=== PATIENT | female | born 1985 | race Caucasian/White ===

== ENCOUNTER 2017-07-21 18:40 | Emergency (ER) | payer SELFPAY, OTHER ==
[2017-07-21 19:15] LABS: BILIRUBIN,URINE NEGATIVE (NEG); CLARITY,URINE CLEAR; COLOR,URINE YELLOW; GLUCOSE,URINE NEGATIVE (NEG); NITRITE,URINE NEGATIVE (NEG); PROTEIN,URINE NEGATIVE (NEG-TRACE); UROBILINOGEN,URINE 0.2 mg/dL (0.2 mg/dL)
[2017-07-21 19:26] LABS: BACTERIA,URINE FEW /HPF (0-FEW); RBC,URINE 0 /HPF (0-2); SQUAMOUS EPITHELIAL CELL,UR MANY /LPF
[2017-07-21] MEDS: PROCHLORPERAZINE 10 MG/2 ML VIAL. IV (19:31)
[2017-07-21] MEDS: KETOROLAC 30 MG/ML INJ. IV (19:31)
[2017-07-21] MEDS: diphenhydrAMINE 50 MG/ML VIAL IVP (19:32)
[2017-07-24 14:17] LABS: CHLAMYDIA PROBE Negative (Negative); GC PROBE Negative (Negative)
== END 2017-07-21 20:30 | disposition home or self-care (01) ==
LOC: ER 18:40
DX: N76.0 Acute vaginitis (principal); B96.89 Other specified bacterial agents as the cause of diseases classified elsewhere; R51 Headache; K58.9 Irritable bowel syndrome, unspecified; G43.909 Migraine, unspecified, not intractable, without status migrainosus; F12.10 Cannabis abuse, uncomplicated; Z87.442 Personal history of urinary calculi; Z98.51 Tubal ligation status; Z88.5 Allergy status to narcotic agent; Z88.2 Allergy status to sulfonamides
CPT/HCPCS: 81001; 87086; 87491; 87591; 96374; 96375; 99284-25; J0780; J1200; J1885; Q0111

== ENCOUNTER 2018-01-29 18:17 | Emergency (ER) | payer SELFPAY ==
[~2018-01-29] VITALS: Ht 154.9 cm; Wt 51.3 kg
[~2018-01-29 18:17] MED LIST: METR500T PO
[2018-01-29 19:44] VITALS: BP 119/74
[2018-01-29 20:13] LABS: BILIRUBIN,URINE NEGATIVE (NEG); CLARITY,URINE CLOUDY; COLOR,URINE YELLOW; NITRITE,URINE POSITIVE (NEG); PROTEIN,URINE 30 mg/dL (NEG-TRACE)
--- NOTE | 2018-01-29 20:19 | PHYS DOC ---
Past Medical History Past Medical History: IBS, Kidney Stone, Migraines, Other Additional Past Medical Histor: kidney blockage Past Surgical History: , Tonsillectomy, Tubal ligation, Other Additional Past Surgical Histo: nephrostomy, adenoids, tubes in ears, uretal stent in place. Alcohol Use: Occasionally Drug Use: Marijuana Adult General Chief Complaint Chief Complaint: MULTIPLE COMPLAINTS HPI HPI 32-year-old female presents for evaluation of "bugs crawling on my skin". She also complains of dysuria and flank pain. Upon my arrival into the room, patient is sitting cross-legged on the floor and emptying out all of her bags, when I ask her what she is doing she states "I am organizing my bags". Patient was asked by the RN prior to my coming into the room to change into a gown, patient refused stating "I can't get changed into my boyfriend comes down to the room to take my close off". Denies drug use, states I am a mother I don't use drugs". She is also concerned that she has lice, her children have head lice recently. She is shaking her head frantically trying to "get the lice out". Review of Systems Review of Systems Constitutional: Denies fever or chills [] GI: Denies abdominal pain, nausea, vomiting, bloody stools or diarrhea [] : Denies dysuria or hematuria [] Musculoskeletal: Denies back pain or joint pain [] Neurologic: Denies headache, focal weakness or sensory changes [] Endocrine: Denies polyuria or polydipsia [] All other systems were reviewed and found to be within normal limits, except as documented in this note. Current Medications Current Medications Current Medications Medications (Trade) Dose Ordered Sig/Jean Paul Start Time Stop Time Status Last Admin Dose Admin Ketorolac Tromethamine (Toradol Im) 30 mg 1X ONCE 01/29/18 20:30 01/29/18 20:31 DC Allergies Allergies Allergies Coded Allergies Type Severity Reaction Last Updated Verified Sulfa (Sulfonamide Antibiotics) Allergy Unknown 05/03/14 No codeine Allergy Unknown 05/03/14 No Physical Exam Physical Exam Constitutional: Well developed, well nourished, no acute distress, non-toxic appearance,. [] Cardiovascular:Heart rate regular rhythm, no murmur [] Lungs & Thorax: Bilateral breath sounds clear to auscultation [] Abdomen: Bowel sounds normal, soft, tender to left side and no point tenderness , tender on lateral aspect of thorax, not in abdominal quadrant, no masses, no pulsatile masses. [] Skin: Warm, dry, no erythema, no rash. [] Back: No tenderness, no CVA tenderness. [] Extremities: No tenderness, no cyanosis, no clubbing, ROM intact, no edema. [] Neurologic: Alert and oriented X 3, normal motor function, normal sensory function, no focal deficits noted. [] Psychologic: She appears intoxicated, she is unable to sit still, she is talking fast Current Patient Data Vital Signs Vital Signs Date Time Temp Pulse Resp B/P (MAP) Pulse Ox O2 Delivery O2 Flow Rate FiO2 01/29/18 19:44 97.4 107 22 119/74 (89) 97 Room Air 97.4 Lab Values Laboratory Tests Test 01/29/18 19:45 01/29/18 20:06 Urine Collection Type Void Urine Color Yellow Urine Clarity Cloudy Urine pH 7.0 Urine Specific [place] 1.020 Urine Protein 30 mg/dL (NEG-TRACE) Urine Glucose (UA) Negative mg/dL (NEG) Urine Ketones (Stick) Negative mg/dL (NEG) Urine Blood Large (NEG) Urine Nitrite Positive (NEG) Urine Bilirubin Negative (NEG) Urine Urobilinogen Dipstick 1.0 mg/dL (0.2 mg/dL) Urine Leukocyte Esterase Small (NEG) Urine RBC 1-2 /HPF (0-2) Urine WBC >40 /HPF (0-4) Urine Squamous Epithelial Cells Many /LPF Urine Bacteria Many /HPF (0-FEW) Urine Mucus Slight /LPF Urine Opiates Screen Neg (NEG) Urine Methadone Screen Neg (NEG) Urine Barbiturates Neg (NEG) Urine Phencyclidine Screen Neg (NEG) Urine Amphetamine/Methamphetamine Pos (NEG) Urine Benzodiazepines Screen Neg (NEG) Urine Cocaine Screen Neg (NEG) Urine Cannabinoids Screen Pos (NEG) Urine Ethyl Alcohol Neg (NEG) POC Urine HCG, Qualitative Hcg negative (Negative) EKG EKG [] Radiology/Procedures Radiology/Procedures [] Course & Med Decision Making Course & Med Decision Making Vital signs are stable, patient is acting erratically, irritable, I discussed UA results, explained that she had urinary tract infection and we will treat with antibiotics. She is still convinced that she has bugs crawling all over her, I recommend she get a steroid cream [id number] to use for the pruritus. I did explain to her again that I do not see any evidence of bug infestation on her skin, she continues to insist that there is. I have recommended that she follow up with primary care regarding this. She is stable for discharge home. Dragon Disclaimer Dragon Disclaimer This electronic medical record was generated, in whole or in part, using a voice recognition dictation system. Departure Departure Impression: Primary Impression: UTI (urinary tract infection) Additional Impressions: Generalized pruritus Substance abuse Disposition: HOME, SELF-CARE Condition: STABLE Referrals: NO PCP (PCP) Patient Instructions: Pruritus, Urinary Tract Infection Scripts Cephalexin (KEFLEX) 500 Mg Capsule 1 CAP PO TID, #21 CAP 0 Refills Prov: JENI SEPULVEDA APRN 01/29/18 Problem Qualifiers JENI SEPULVEDA APRN Jan 29, 2018 20:19
[2018-01-29 20:23] LABS: BARBITURATES NEG (NEG); BENZODIAZEPINES NEG (NEG); CANNABINOIDS POS (NEG); COCAINE NEG (NEG); METHADONE NEG (NEG); OPIATES NEG (NEG); PHENCYCLIDINE NEG (NEG)
[2018-01-29 20:28] LABS: AMPHETAMINE/METHAMPHETAMINE POS (NEG)
[2018-01-29] MEDS ORDERED: KETOROLAC 60 MG/2 ML INJ. IM ONE (20:30)
[2018-01-29 20:44] LABS: BACTERIA,URINE MANY /HPF (0-FEW); SQUAMOUS EPITHELIAL CELL,UR MANY /LPF; WBC,URINE >40 /HPF (0-4)
[2018-01-29] MEDS ORDERED: CEPH-264 PO (20:59)
== END 2018-01-29 21:11 | disposition home or self-care (01) ==
LOC: ER 18:17
DX: N39.0 Urinary tract infection, site not specified (principal); L29.9 Pruritus, unspecified; F12.10 Cannabis abuse, uncomplicated; Z90.89 Acquired absence of other organs; Z88.2 Allergy status to sulfonamides; Z88.5 Allergy status to narcotic agent
CPT/HCPCS: 80307; 81001; 81025; 96372; 99284; J1885; 87086; G0479

== ENCOUNTER 2019-01-29 02:50 | Emergency (ER) | payer SELFPAY ==
[~2019-01-29] VITALS: Ht 160 cm; Wt 53.5 kg
[~2019-01-29 02:50] MED LIST changes: +CEPH-264 PO
[2019-01-29] MEDS ORDERED: KETOROLAC 30 MG/ML VIAL. IM ONE (03:30)
[2019-01-29] MEDS ORDERED: NEOMY/BACITR/POLYMYXIN OINT PACKET. TP ONE (03:30)
[2019-01-29] MEDS ORDERED: HYDR-3164 PO (03:42)
--- NOTE | 2019-01-29 03:42 | PHYS DOC ---
Past Medical History Additional Past Medical Histor: kidney blockage Past Surgical History: , Tubal ligation Additional Past Surgical Histo: nephrostomy, adenoids, tubes in ears, ureteral stent Smoking: Cigarettes Alcohol Use: None Drug Use: Methamphetamine Adult General Chief Complaint Chief Complaint: ANKLE PROBLEM HPI HPI 33-year-old female presents with report of right foot injury with abrasions to l ateral aspect of foot and ankle which occurred approximately 30 minutes to arrival. Patient reports a cinderblock landed on it. Patient reports last tetanus greater than 5 years ago. Denies due to history of tubal ligation. Reports wound is throbbing. Review of Systems Review of Systems Constitutional: Denies fever or chills Eyes: Denies redness or eye pain HENT: Denies nasal congestion or sore throat Respiratory: Denies cough or shortness of breath Cardiovascular: Denies chest pain or palpitations GI: Denies abdominal pain, nausea, or vomiting : Denies dysuria or hematuria Musculoskeletal: Reports right foot and ankle pain Integument: Reports abrasions to lateral aspect of right ankle and right lateral foot. Neurologic: Denies headache, focal weakness or sensory changes Complete systems were reviewed and found to be within normal limits, except as documented in this note. Current Medications Current Medications Current Medications Medications (Trade) Dose Ordered Sig/Jean Paul Start Time Stop Time Status Last Admin Dose Admin Acetaminophen/ Hydrocodone Bitart (Lortab 5/325) 1 tab 1X ONCE 01/29/19 04:00 01/29/19 04:01 Diphtheria/ Tetanus/Acell Pertussis (Boostrix) 0.5 ml ONCE ONCE 01/29/19 04:00 01/29/19 04:01 Ketorolac Tromethamine (Toradol 30mg Vial) 30 mg 1X ONCE 01/29/19 03:30 01/29/19 03:31 DC 01/29/19 03:32 30 MG Neomycin/ Polymyxin/ Bacitracin (Triple Antibiotic Ointment) 1 pkt 1X ONCE 01/29/19 03:30 01/29/19 03:31 DC 01/29/19 03:32 1 PKT Allergies Allergies Allergies Coded Allergies Type Severity Reaction Last Updated Verified Sulfa (Sulfonamide Antibiotics) Allergy Intermediate 01/29/19 No codeine Allergy Intermediate 01/29/19 No Physical Exam Physical Exam Constitutional: Well developed, well nourished, appears uncomfortable, non-toxic appearance HENT: Normocephalic, atraumatic, oropharynx moist Eyes: Conjunctiva normal, no discharge Neck: Normal range of motion, supple Cardiovascular: Right capillary refill less than 2 seconds, right PT and DP +2 pulses Lungs & Thorax: No respiratory distress Skin: Warm, dry, 1 cm right lateral ankle abrasion, right distal lateral foot superficial avulsion- no active bleeding Extremities: Right fifth metatarsal tenderness on palpation and range of motion, right lateral malleoli or pain with palpation Neurologic: Alert and oriented X 3, no focal deficits noted Psychologic: Affect anxious, judgement normal EKG EKG [] Radiology/Procedures Radiology/Procedures PROCEDURE: FOOT RIGHT 3V & ANKLE 3V Right foot x-rays 3 views HISTORY: Right foot pain, trauma. FINDINGS: No fracture, dislocation or arthritic change. The soft tissues are unremarkable. IMPRESSION: No acute osseous injury of the foot. Right ankle x-rays 3 views HISTORY: Right ankle pain. FINDINGS: No fracture or dislocation. No talus osteochondral lesion. Soft tissues are unremarkable. IMPRESSION: No acute osseous injury of the ankle. Electronically signed by: Fabricio Obrien MD (01/29/2019 3:44 AM) [facility] Course & Med Decision Making Course & Med Decision Making Pertinent Imaging studies reviewed. (See chart for details) Patient presents with report of blunt trauma to right foot with subsequent abrasions to lateral ankle and lateral foot. Tetanus updated. Wounds cleaned and dressed. X-ray obtained without signs of fracture or dislocation. Kaushal wrap applied. Crutches provided. Pain addressed. Patient stable for discharge with outpatient follow-up with PCP. Discussed findings and plan with patient and family, who acknowledge understanding and agreement. Dragon Disclaimer Dragon Disclaimer This electronic medical record was generated, in whole or in part, using a voice recognition dictation system. Splinting Splinting : Location: right ankle and foot Pre-Made Type: Kaushal bandage Pre-Proc Neuro Vasc Exam: normal Post-Proc Neuro Vasc Exam: normal, unchanged from pre-exam Departure Departure Impression: Primary Impression: Foot contusion Additional Impression: Abrasion Disposition: 01 HOME, SELF-CARE Condition: STABLE Referrals: NO PCP (PCP) Patient Instructions: Abrasion, [id number], Crutch Use, [id number], Foot Contusion, [id number] Scripts Hydrocodone/Apap 5-325 (NORCO 5-325 TABLET) 1 Each Tablet 0.5-1 TAB PO PRN Q6HRS PRN for PAIN, #10 TAB 0 Refills Prov: SUNNI NESBITT DO 01/29/19 Problem Qualifiers Primary Impression: Foot contusion Encounter type: initial encounter Laterality: right Qualified Codes: S90.31XA - Contusion of right foot, initial encounter SUNNI NESBITT DO Jan 29, 2019 03:42
--- NOTE | 2019-01-29 03:47 | RAD ---
Right foot x-rays 3 views HISTORY: Right foot pain, trauma. FINDINGS: No fracture, dislocation or arthritic change. The soft tissues are unremarkable. IMPRESSION: No acute osseous injury of the foot. Right ankle x-rays 3 views HISTORY: Right ankle pain. FINDINGS: No fracture or dislocation. No talus osteochondral lesion. Soft tissues are unremarkable. IMPRESSION: No acute osseous injury of the ankle. Electronically signed by: Fabricio Obrien MD (01/29/2019 3:44 AM) [facility]
[2019-01-29] MEDS ORDERED: HYDROcodone/APAP 5/325MG 1 TAB TABLET PO ONE (04:00)
[2019-01-29] MEDS ORDERED: DIPHTH,PERTUSS(ACELL),TET TOX 0.5 ML DISP.SYRIN. VAX IM ONE (04:00)
== END 2019-01-29 04:18 | disposition home or self-care (01) ==
LOC: ER 02:50
DX: S90.31XA Contusion of right foot, initial encounter (principal); S90.511A Abrasion, right ankle, initial encounter; Z98.890 Other specified postprocedural states; F17.210 Nicotine dependence, cigarettes, uncomplicated; Z98.51 Tubal ligation status; Z88.2 Allergy status to sulfonamides; Z88.5 Allergy status to narcotic agent; Z96.22 Myringotomy tube(s) status; W22.8XXA Striking against or struck by other objects, initial encounter; Y93.89 Activity, other specified; Y92.89 Other specified places as the place of occurrence of the external cause; Y99.8 Other external cause status
CPT/HCPCS: 73610; 73630; 90471; 90715; 96372; 99284; J1885

== ENCOUNTER → 2019-05-11 | Emergency (ER) | payer SELFPAY ==
[~2019-05-11] VITALS: Ht 152.4 cm; Wt 53.5 kg
[~2019-05-11] MED LIST changes: +DOXY100C2 PO; +DOXYCYCLINE HYCLATE 100 MG TABLET PO ONE; +HYDR-3164 PO; +ONDA4TAB7 PO; +ONDANSETRON ODT 4 MG TAB.RAPDIS. PO ONE
[2019-05-11 01:00] VITALS: BP 119/74
--- NOTE | 2019-05-11 01:44 | PHYS DOC ---
Past Medical History Past Medical History: No Pertinent History Additional Past Medical Histor: kidney blockage Past Surgical History: , Tubal ligation Additional Past Surgical Histo: nephrostomy, adenoids, tubes in ears, ureteral stent Alcohol Use: None Drug Use: Methamphetamine Adult General Chief Complaint Chief Complaint: ABSCESS HPI HPI 34-year-old female presents to the emergency department with complaints of abscess. Patient was seen at with incision and drainage with a loop placed, she did not return for follow-up, she stopped her antibiotics, and she subsequently discontinued the loop. She presents today with complaints of pain in the abscess area. There is nonfluctuant on examination, indurated. She states she still has some drainage at times. Patient denies any fever, nausea, vomiting at this time. She states she was on clindamycin however was intolerant to the medication given nausea and vomiting. She states they used ketamine for sedation at is requesting sedation if any procedure needs to be performed Review of Systems Review of Systems Constitutional: Denies fever or chills [] HENT: Denies nasal congestion or sore throat [] Respiratory: Denies cough or shortness of breath [] Cardiovascular: No additional information not addressed in HPI [] GI: nausea/vomiting with antibiotics : Denies dysuria or hematuria [] Musculoskeletal: Denies back pain or joint pain [] Integument: wrist pain Neurologic: Denies headache, focal weakness or sensory changes [] All other systems were reviewed and found to be within normal limits, except as documented in this note. Current Medications Current Medications Current Medications Medications (Trade) Dose Ordered Sig/Jean Paul Start Time Stop Time Status Last Admin Dose Admin Doxycycline Hyclate (Vibra-Tab) 100 mg 1X ONCE 05/11/19 01:45 05/11/19 01:46 Ondansetron HCl (Zofran Odt) 4 mg 1X ONCE 05/11/19 01:45 05/11/19 01:46 Allergies Allergies Allergies Coded Allergies Type Severity Reaction Last Updated Verified Sulfa (Sulfonamide Antibiotics) Allergy Intermediate 01/29/19 No codeine Allergy Intermediate 01/29/19 No Physical Exam Physical Exam Constitutional: Well developed, patient appears under the influence of substance Cardiovascular:Heart rate regular rhythm, no murmur [] Lungs & Thorax: Bilateral breath sounds clear to auscultation [] Skin: Warm, dry, no erythema, no rash. [] Extremities: tenderness appreciated to right wrist, indurated area however nonfluctuant on exam [] Neurologic: Alert and oriented X 3, no focal deficits noted. [] Psychologic: Affect normal, judgement normal, mood normal. [] Current Patient Data Vital Signs Vital Signs Date Time Temp Pulse Resp B/P (MAP) Pulse Ox O2 Delivery O2 Flow Rate FiO2 05/11/19 01:00 98.3 78 20 119/74 (89) 99 Room Air 98.3 EKG EKG [] Radiology/Procedures Radiology/Procedures [] Course & Med Decision Making Course & Med Decision Making Pertinent Labs and Imaging studies reviewed. (See chart for details) []34-year-old female presents to the emergency department with complaints of abscess. Patient was seen at with incision and drainage with a loop placed, she did not return for follow-up, she stopped her antibiotics, and she subsequently discontinued the loop. She presents today with complaints of pain in the abscess area. There is nonfluctuant on examination, indurated. She states she still has some drainage at times. Patient denies any fever, nausea, vomiting at this time. She states she was on clindamycin however was intolerant to the medication given nausea and vomiting. She states they used ketamine for sedation at is requesting sedation if any procedure needs to be performed Dragon Disclaimer Dragon Disclaimer This electronic medical record was generated, in whole or in part, using a voice recognition dictation system. Departure Departure Impression: Primary Impression: Abscess Disposition: 01 HOME, SELF-CARE Condition: STABLE Referrals: NO PCP (PCP) Patient Instructions: Abscess Additional Instructions: Recommend follow up with PCP 3 - 5 days Return to the ER with worsening symptoms, intractable pain, fever, altered mental status Tylenol/Motrin as needed for pain Take antibiotics as directed (doxycycline 100mg BID, Zofran rx for nausea) Scripts Ondansetron Hcl (ZOFRAN) 4 Mg Tablet 1 TAB PO PRN Q6-8HRS for nausea, #12 TAB Prov: NATACHA MCCOLLUM MD 05/11/19 Doxycycline Hyclate (DOXYCYCLINE HYCLATE) 100 Mg Capsule 1 CAP PO BID for 10 Days, #20 CAP Prov: NATACHA MCCOLLUM MD 05/11/19 NATACHA MCCOLLUM MD May 11, 2019 01:44
== END ==
LOC: ER 00:01
DX: L02.413 Cutaneous abscess of right upper limb (principal); M25.531 Pain in right wrist; F13.90 Sedative, hypnotic, or anxiolytic use, unspecified, uncomplicated; Z98.51 Tubal ligation status; Z98.890 Other specified postprocedural states; Z88.2 Allergy status to sulfonamides; Z88.5 Allergy status to narcotic agent
CPT/HCPCS: 99283; Q0162